=== PATIENT | female | born 1990 | race Asian ===

== ENCOUNTER 2022-12-21 21:25 | Emergency (ER) | payer OTHER ==
[2022-12-21 21:52] LABS: Specific Gravity 1.011 (1.005-1.030)
[2022-12-21 21:56] LABS: Specific Gravity 1.011 (1.005-1.030); Urine Bacteria <20 /HPF (<20); Urine Bilirubin NEGATIVE (Negative); Urine Blood 2+ (Negative); Urine Clarity Extremely Turbid (Clear); Urine Color Light-Yellow (Yellow); Urine Glucose NEGATIVE (Negative); Urine Protein 1+ (Negative); Urine RBC 21-50 /HPF (None Seen); Urine Urobilinogen Normal (Normal); Urine WBC Clump Rare /HPF (None Seen); Urine pH 6.5 (5.0-7.0)
--- NOTE | 2022-12-21 22:39 | RAD REPORT ---
EXAM DESCRIPTION: CT - Stone Protocol - 12/21/2022 10:24 pm CLINICAL HISTORY: FLANK PAIN COMPARISON: No comparisons TECHNIQUE: Thin cut axial CT imaging of the abdomen and pelvis was performed without IV contrast. Mu ltiplanar reformats were generated and reviewed. All CT scans are performed using dose optimization technique as appropriate and may include automated exposure control or mA/KV adjustment according to patient size. FINDINGS: No suspicious findings in the lung bases. The liver, spleen, and pancreas show no suspicious findings. Gallbladder and biliary tree are also wi thout suspicious finding. Symmetric renal contour, without suspicious parenchymal findings within limits of noncontrast techniq ue. No evidence of radiopaque calculi or hydroureteronephrosis. No dilated bowel loops or bowel wall thickening. No free air, free fluid or inflammatory stranding. N o hernia, mass or bulky lymphadenopathy. The urinary bladder is without significant finding. No suspicious bony findings. IMPRESSION: No acute intra-abdominal process.
--- NOTE | 2022-12-21 22:44 | ER ---
Nurse's Notes [facility] Name: Yuliana Aguilar Age: 32 yrs Sex: Female : 1990 Arrival Date: 12/21/2022 Time: 21:25 Bed 6 Private MD: Diagnosis: UTI/ Urinary tract infection, site not specified Presentation: 12/21 21:34 Chief complaint: Patient states: I have been having pain with urination and suprapubic kd3 pain that radiates to my right lower back for a week. I have an appointment with my primary physician but they cannot see me until 01/06. Ebola Screen: No symptoms or risks identified at this time. Onset of symptoms was December 21, 2022. 21:34 Method Of Arrival: Ambulatory kd3 21:34 Acuity: MARY ELLEN 3 kd3 21:40 Coronavirus screen: Vaccine status: Patient reports receiving the 2nd dose of the covid kd3 vaccine. Initial Sepsis Screen: Does the patient meet any 2 criteria? No. Patient's initial sepsis screen is negative. Does the patient have a suspected source of infection? Yes: Dysuria/Frequency/Urgency/UTI. Risk Assessment: Do you want to hurt yourself or someone else? Patient reports no desire to harm self or others. Triage Assessment: 21:34 General: Appears uncomfortable, Behavior is calm, cooperative. Pain: Complains of pain kd3 in suprapubic area Pain radiates to left low back. GI: No deficits noted. Historical: - Allergies: 21:40 No Known Allergies; kd3 - Immunization history:: Adult Immunizations up to date, Client reports receiving the 2nd dose of the Covid vaccine. - Social history:: Smoking status: Patient denies any tobacco usage or history of. Screenin:48 Abuse screen: Denies threats or abuse. Denies injuries from another. Nutritional aa9 screening: No deficits noted. Tuberculosis screening: No symptoms or risk factors identified. 23:02 [facility] ED Fall Risk Assessment (Adult) History of falling in the last 3 months, aa9 including since admission No falls in past 3 months (0 pts) Confusion or Disorientation No (0 pts) Intoxicated or Sedated No (0 pts) Impaired Gait No (0 pts) Mobility Assist Device Used No (0 pt) Altered Elimination No (0 pt) Score/Fall Risk Level 0 - 2 = Low Risk Oriented to surroundings, Maintained a safe environment. Assessment: 21:47 General: Appears in no apparent distress. comfortable, slender, Behavior is calm, aa9 cooperative. Neuro: Level of Consciousness is awake, alert, obeys commands, Oriented to person, place, time, situation. Respiratory: Airway is patent Respiratory effort is even, unlabored. 22:35 Reassessment: Patient appears in no apparent distress at this time. Patient and/or aa9 family updated on plan of care and expected duration. Pain level reassessed. 23:02 Reassessment: Patient appears in no apparent distress at this time. Patient and/or aa9 family updated on plan of care and expected duration. Pain level reassessed. Patient is alert, oriented x 3, equal unlabored respirations, skin warm/dry/pink. Vital Signs: 21:40 Weight 49.9 kg; kd3 21:41 BP 111 / 73; Pulse 68; Resp 19; Temp 97.8(O); Pulse Ox 100% on R/A; kd3 23:02 BP 109 / 73; Pulse 62; Resp 16; Temp 98.3; Pulse Ox 99% on R/A; aa9 ED Course: 21:28 Patient arrived in ED. ja2 21:28 Latisha Echeverria F[facility]-C [facility] kb 21:28 Sanjiv Sterling MD is Attending Physician. kb 21:31 Estela Armstrong, STACEY is Primary Nurse. aa9 21:34 Arm band placed on right wrist. kd3 21:35 Triage completed. kd3 21:44 Test, Urine Sent. aa9 21:44 Urinalysis w/ reflexes Sent. aa9 22:26 CT Stone Protocol In Process Unspecified. EDMS 23:01 No provider procedures requiring assistance completed. Patient did not have IV access aa9 during this emergency room visit. 23:02 Patient has correct armband on for positive identification. aa9 Administered Medications: No medications were administered Medication: 23:02 VIS not applicable for this client. aa9 Outcome: 22:43 Discharge ordered by . kb 23:02 Discharged to home ambulatory, with significant other. aa9 23:02 Condition: stable 23:02 Discharge instructions given to patient, Instructed on discharge instructions, follow up and referral plans. medication usage, Demonstrated understanding of instructions, follow-up care, medications, Prescriptions given X 1. 23:03 Patient left the ED. aa9 Signatures: Dispatcher [employer] EDLatisha Padilla, NATHAN-C SURGERY ASSISTANT-Kelly Chavez Kyli, RN RN kd3 Estela Armstrong RN RN aa9
--- NOTE | 2022-12-21 22:44 | EDPHYS ---
Physician Documentation [facility] Name: Yuliana Aguilar Age: 32 yrs Sex: Female : 1990 Arrival Date: 12/21/2022 Time: 21:25 Bed 6 Private MD: ED Physician Sanjiv Sterling HPI: 12/21 23:03 This 32 yrs old Female presents to ER via Ambulatory with complaints of Pain With kb Urination, Abdominal Pain, Urinary Frequency. 23:03 The patient presents with urinary symptoms, dysuria, frequency. Onset: The kb symptoms/episode began/occurred 1 week(s) ago, and became worse 3 day(s) ago. Modifying factors: The symptoms are alleviated by nothing, the symptoms are aggravated by urinating. Associated signs and symptoms: Pertinent positives: dysuria, urinary frequency. Severity of symptoms: At their worst the symptoms were mild, moderate, in the emergency department the symptoms are unchanged. The patient has not experienced similar symptoms in the past. The patient has not recently seen a physician. Pt reports urinary frequency, dysuria and suprapubic pain for one week that got worse 3 days ago. Now pain radiating to left flank. Historical: - Allergies: 21:40 No Known Allergies; kd3 - Immunization history:: Adult Immunizations up to date, Client reports receiving the 2nd dose of the Covid vaccine. - Social history:: Smoking status: Patient denies any tobacco usage or history of. ROS: 23:02 Constitutional: Negative for fever, chills, and weight loss. kb 23:02 Abdomen/GI: Positive for abdominal pain. 23:02 Back: Positive for flank pain, on the left. 23:02 : Positive for urinary symptoms, urinary frequency, burning with urination. 23:02 All other systems are negative. Exam: 23:02 Constitutional: This is a well developed, well nourished patient who is awake, alert, kb and in no acute distress. Head/Face: Normocephalic, atraumatic. ENT: Moist Mucous membranes Cardiovascular: Regular rate and rhythm with a normal S1 and S2. No gallops, murmurs, or rubs. No pulse deficits. Respiratory: Respirations even and unlabored. No increased work of breathing. Talking in full sentences Abdomen/GI: Soft, non-tender. No distention Back: No spinal tenderness. No costovertebral tenderness. Full range of motion. Skin: Warm, dry with normal turgor. Normal color. MS/ Extremity: Pulses equal, no cyanosis. Neurovascular intact. Full, normal range of motion. Neuro: Awake and alert, GCS 15, oriented to person, place, time, and situation. Moves all extremities. Normal gait. Vital Signs: 21:40 Weight 49.9 kg; kd3 21:41 BP 111 / 73; Pulse 68; Resp 19; Temp 97.8(O); Pulse Ox 100% on R/A; kd3 23:02 BP 109 / 73; Pulse 62; Resp 16; Temp 98.3; Pulse Ox 99% on R/A; aa9 MDM: 21:28 Patient medically screened. kb 23:02 Data reviewed: vital signs, nurses notes. kb 23:04 Differential diagnosis: urinary tract infection, kidney stone, pyelonephritis. kb Counseling: I had a detailed discussion with the patient and/or guardian regarding: the historical points, exam findings, and any diagnostic results supporting the discharge/admit diagnosis, lab results, radiology results, the need for outpatient follow up, a family practitioner, to return to the emergency department if symptoms worsen or persist or if there are any questions or concerns that arise at home. 12/21 21:32 Order name: Test, Urine; Complete Time: 22:01 kb 12/21 21:32 Order name: Urinalysis w/ reflexes; Complete Time: 22:01 kb 12/21 22:00 Order name: Urine Culture [facility] 12/21 22:07 Order name: CT Stone Protocol; Complete Time: 22:43 kb Administered Medications: No medications were administered Disposition: 23:11 Co-signature as Attending Physician, Sanjiv Sterling MD I reviewed the patient's care rt provided by the Advanced Practice Provider and agree with the diagnosis and treatment plan. Disposition Summary: 12/21/22 22:43 Discharge Ordered Location: Home kb Condition: Stable kb Diagnosis - UTI/ Urinary tract infection, site not specified kb Followup: kb - With: Emergency Department - When: As needed - Reason: Worsening of condition Followup: kb - With: Private Physician - When: 2 - 3 days - Reason: Recheck today's complaints, Continuance of care, Re-evaluation by your physician Discharge Instructions: - Discharge Summary Sheet kb - Urinary Tract Infection, Adult, [id number] kb Forms: - Medication Reconciliation Form kb - Thank You Letter kb - Antibiotic Education kb - Prescription Opioid Use kb Prescriptions: - Augmentin 875-125 mg Oral Tablet - take 1 tablet by ORAL route every 12 hours for 10 days; 20 tablet; Refills: 0, kb Product Selection Permitted Signatures: Dispatcher [employer] EDMS Latisha Echeverria, Bianca Godinez RN RN kd3 Sanjiv Sterling MD MD rt
[2022-12-21 23:32] VITALS: BP 109/73; TEMP 98.3; O2SAT 99
== END 2022-12-21 23:03 | disposition home or self-care (01) ==
LOC: ER 21:25
DX: N39.0 Urinary tract infection, site not specified (principal)
CPT/HCPCS: 74176; 76377; 81001; 81025; 87086; 87088; 99284